=== PATIENT | female | born 1965 | race American Indian/Alaskan Native ===

== ENCOUNTER 2017-08-30 08:51 | Emergency (ER) | payer OTHER ==
[2017-08-30 09:15] VITALS: BP 169/104
--- NOTE | 2017-08-30 10:48 | Emergency Department Report ---
HPI - General Chief Complaint: Shoulder Injury Time Seen by Provider: 08/30/17 10:18 - HPI HPI: She is a 51-year-old female with no other medical condition presents to ED complaining of right shoulder pain 1 month. Patient states that she has surgery by Joanie Calhoun on 07/19/2017 for rotator cuff repair. Patient states she was given Percocet by her picture orthopedic doctor. Patient states that pain has gotten worse in the past week. Patient states that she has been taking tramadol with no relief. She denies any recent injury, fever, chills, nausea, vomiting, chst pain/sob. ED Past Medical Hx - Past Medical History Previous Medical History?: Yes Additional medical history: Right shoulder pain - Surgical History Past Surgical History?: Yes Additional Surgical History: Right shoulder rotator cuff - Social History Smoking Status: Current Every Day Smoker Substance Use Type: Prescribed - Medications Home Medications: Home Medications Medication Instructions Recorded Confirmed Last Taken Type Dicyclomine [Bentyl] 20 mg PO QID PRN #20 tablet 12/27/[address] (Nf) 50 mg PO BID #20 tablet. 08/30/17 Unknown Rx methOCARBAMOL [Robaxin TAB] 500 mg PO BID #20 tab 08/30/17 Unknown Rx ED Review of Systems ROS: Stated complaint: RIGHT SHOULDER PAIN Other details as noted in HPI Constitutional: denies: chills, fever Eyes: denies: eye pain, eye discharge, vision change ENT: denies: ear pain, throat pain Respiratory: denies: cough, shortness of breath, wheezing Cardiovascular: denies: chest pain, palpitations Endocrine: no symptoms reported Gastrointestinal: denies: abdominal pain, nausea, diarrhea Genitourinary: denies: urgency, dysuria, discharge Musculoskeletal: arthralgia. denies: back pain, joint swelling Skin: denies: rash, lesions Neurological: denies: headache, weakness, paresthesias Psychiatric: denies: anxiety, depression Hematological/Lymphatic: denies: easy bleeding, easy bruising Physical Exam - Physical Exam Vital Signs: Vital Signs 08/30/17 09:09 Temperature 98.2 F Pulse Rate 96 H Respiratory 18 Rate Blood Pressure 169/104 O2 Sat by Pulse 100 Oximetry Physical Exam: GENERAL: Alert and oriented x3, no apparent distress, Normal Gait, atraumatic. NECK: Supple. Non edematous, No lymphadenopathy or thyromegaly. LUNGS: Symetrical with respiration, No wheezing, no rales or crackles, CTAB. HEART: S1, S2 present, regular rate and rhythm without murmur, no rubs, no gallops. Non tender to palpation EXTREMITIES/MUSCULOSKELETAL: No cyanosis, clubbing, rash, lesions or edema. Full ROM bilaterally. UE/LE Pulses 2+ bilaterally. LE and UE 5+ strength bilaterally, tenderness to palpation of the right shoulder. Shoulder had full range of motion. No bruising, no ecchymosis, no bleeding, no swelling. NEUROLOGIC: The patient is cooperative with no focal neurologic deficits. Cranial nerves II through XII are grossly intact. Normal speech. Normal sensation in bilateral upper and lower extremities, PSYCHIATRIC: Mood is congruent with affect, denies suicidal or homicidal ideations. SKIN: Warm and dry, No lesions, No ulceration or induration present. ED Course Vital Signs 08/30/17 09:09 Temperature 98.2 F Pulse Rate 96 H Respiratory 18 Rate Blood Pressure 169/104 O2 Sat by Pulse 100 Oximetry ED Medical Decision Making - Medical Decision Making The 51-year-old female presents with shoulder arthralgia ED course: I discussed with patient that I would not be giving her narcotics for pain. As according to the [facility] aware [place] records patient received 50 tablets of Percocet on the 07/19/2017,another 50 tablets of Percocet on 08/03/2017 and another 50 tabs of Percocet on 08/17/2017 that was scribed by Dr Mike Clements. I discussed the patient that by law she cannot receive another prescription for narcotics. I discussed with her the patient to follow up with her orthopedic doctor. I discussed use of Nsaids and muscle relaxer. He is in no acute distress. Critical care attestation.: If time is entered above; I have spent that time in minutes in the direct care of this critically ill patient, excluding procedure time. ED Disposition Clinical Impression: Shoulder pain, right Qualifiers: Chronicity: chronic Qualified Code(s): M25.511 - Pain in right shoulder Disposition: -01 TO HOME OR SELFCARE Is pt being admited?: No Does the pt Need Aspirin: No Condition: Stable Instructions: Trigger Point Pain (ED), Arthralgia (ED) Additional Instructions: Follow-up which orthopedic doctor [facility] orthopedics. If You have any worsening symptoms or any new symptoms arise please return to the ED immediately Prescriptions: Diclofenac Dr (Nf) 50 mg PO BID #20 tablet. methOCARBAMOL [Robaxin TAB] 500 mg PO BID #20 tab Referrals: PRIMARY CARE, [Primary Care Provider] - 3-5 Days [facility] [Outside] - 3-5 Days [facility] [Outside] - 3-5 Days [facility] [Outside] - 3-5 Days Forms: Accompanied Note, Work/School Release Form(ED) Time of Disposition: 11:50
[2017-08-30] MEDS ORDERED: TORADOL IM ONE (11:50)
[2017-08-30] MEDS ORDERED: TORADOL ONE (12:03)
== END 2017-08-30 12:06 | disposition home or self-care (01) ==
LOC: ED 08:51
DX: M25.511 Pain in right shoulder (principal); G89.28 Other chronic postprocedural pain; F17.200 Nicotine dependence, unspecified, uncomplicated; Z88.8 Allergy status to other drugs, medicaments and biological substances
CPT/HCPCS: 96372; 99282; J1885